=== PATIENT | male | born 1985 | race African-American/Black ===

== ENCOUNTER 2016-05-25 22:20 | Emergency (ER) | payer MEDICAID ==
[~2016-05-25] VITALS: Ht 180.3 cm; Wt 80.1 kg
[2016-05-25 22:23] VITALS: Ht 180.3 cm; Wt 80.1 kg
[2016-05-25 23:20] LABS: ADD UMIC YES; BASOPHIL # 0.1 10^3/ul (0.0-0.1); BASOPHILS % 0.7 % (0.0-2.0); EOSINOPHILS # 0.2 10^3/ul (0.0-0.5); EOSINOPHILS % 2.6 % (0.0-7.0); RED CELL DISTRIBUTION WIDTH 14.1 % (11.5-14.5); URINE BILIRUBIN (Dip) NEGATIVE (NEGATIVE); URINE BLOOD (Dip) NEGATIVE (NEGATIVE); URINE COLOR LT. YELLOW (YELLOW); URINE GLUCOSE (Dip) NEGATIVE (NEGATIVE); URINE KETONES (Dip) NEGATIVE (NEGATIVE); URINE LEUKOCYTE ESTERASE (Dip) NEGATIVE (NEGATIVE); URINE NITRITE (Dip) NEGATIVE (NEGATIVE); URINE TOTAL PROTEIN (Dip) TRACE (NEGATIVE); URINE UROBILINOGEN (Dip) 1.0 E.U./dL (0.1-1.0)
[2016-05-25 23:21] LABS: LH ANALYZER COMMENTS 1
[2016-05-25 23:31] LABS: BACTERIA,URINE MANY; SQUAMOUS EPITHELIAL CELL,UR RARE; URINE RBCS 0-2 /HPF (0)
[2016-05-25 23:43] LABS: ALBUMIN 3.2 g/dl (3.3-4.9)
[2016-05-25 23:44] LABS: CHLORIDE 106 mmol/L (97-110); SODIUM 141 mmol/L (135-144)
[2016-05-25 23:45] LABS: LYMPHOCYTES # 3.3 10^3/ul (0.8-2.9); LYMPHOCYTES % 39.3 % (15.0-51.0); MONOCYTE # 0.6 10^3/ul (0.3-0.9); MONOCYTES % 7.6 % (0.0-11.0); NEUTROPHIL # 4.2 10^3/ul (1.6-7.5); NEUTROPHILS % 49.8 % (39.0-77.0); UNCORRECTED WBC 8.5 10^3/ul (4.8-10.8)
[2016-05-25 23:46] LABS: ALANINE AMINOTRANSFERASE 36 IU/L (13-69); ALBUMIN/GLOBULIN RATIO 1.52; ALKALINE PHOSPHATASE 53 IU/L (42-121); ANION GAP 13 (8-16); ASPARTATE AMINO TRANSFERASE 23 IU/L (15-46); BLOOD UREA NITROGEN 13 mg/dl (7-20); CARBON DIOXIDE 26 mmol/L (21-31); CONDITION 1; CREATININE 0.91 mg/dl (0.61-1.24); GLUCOSE 124 mg/dl (70-220); TOTAL PROTEIN 5.3 g/dl (6.1-8.1)
[2016-05-25 23:47] LABS: CALCIUM 8.7 mg/dl (8.4-10.2)
[2016-05-25 23:51] LABS: RED BLOOD COUNT 4.72 10^6/ul (4.70-6.10); WHITE BLOOD COUNT 8.5 10^3/ul (4.8-10.8)
[2016-05-25 23:52] LABS: HEMOGLOBIN 14.5 g/dl (14.0-18.0)
[2016-05-25 23:53] LABS: MEAN CORPUSCULAR HEMOGLOBIN 30.7 pg (29.0-33.0); MEAN CORPUSCULAR HGB CONC 33.8 g/dl (32.0-37.0)
[2016-05-25 23:54] LABS: MEAN PLATELET VOLUME 8.3 fl (7.4-10.4); PLATELET COUNT 269 10^3/UL (140-440)
[2016-05-26 00:01] LABS: ACETAMINOPHEN < 10.0 ug/ml (10.0-30.0); ETHANOL < 10.0 mg/dl; SALICYLATE < 1.0 mg/dl (5.0-30.0)
[2016-05-26 00:26] LABS: BARBITURATES NEGATIVE (NEGATIVE); BENZODIAZEPINES NEGATIVE (NEGATIVE); CANNABINOIDS POSITIVE (NEGATIVE); COCAINE NEGATIVE (NEGATIVE); OPIATES NEGATIVE (NEGATIVE)
--- NOTE | 2016-05-26 02:23 | PSY ---
Date/Time of Note Date/Time of Note DATE: 05/25/16 TIME: 23:54 Psychiatric Subjective Eval Consent Pt consented to telemedicine: Yes Subjective Evaluation Patient location: emergency Chief Complaint: SI and a plan to jump off a bridge, Hx of Bipolar Reason for consult: suicidal History of present illness patient is a 31 yo male homeless with PPH Of depression who came to the ER due to feeling suicidal , he states that he has been feeling depressed, hopeless and helpless for months due to being homeless, having no support and being lonely. He denies any past or current manic or psychotic symptoms, he states that he has been suffering from insomnia for about one week, decrease appetite, lost interest in any type of activities, decrease energy and irritability. He states that he wants to jump of a building and was contemplating how to do it today. Past psychiatric history past suicidal attempt yes Hospitalization: yes Family History denies Medical history as per record Allergies: Coded Allergies: No Known Allergy (Unverified , 05/25/16) Substance Abuse Substance use: No known substance abuse Social History Marital status: single Level of education: hs DPA/Conservatorship: No Occupation/Fpc: unemployed Psychiatric Objective Eval Review of Systems: Review of Systems: Not Applicable Physical Examination: Physical Examination: Applicable Sleep: Insomnia Appetite: Decreased Energy: Decreased Interest: Decreased Mental Status Examination: Appearance: Disheveled Eye Contact: Good Psychomotor Activity: Normal Behavior: Cooperative Speech: Clear AFFECT: Depressed Mood: Depressed Though Process: Linear Thought Content: Normal, Delusions Suicidal: Yes Homicidal: No On 72 hour hold: No Orientation: x3 Cognition: Alert Insight: Impared Judgement: Impared Attention Span: Distractible Laboratory Results Laboratory Tests Test 05/25/16 23:00 Albumin 3.2g/dl Basophils # 0.110^3/ul Basophils % 0.7% Chloride Level 106mmol/L Eosinophils # 0.210^3/ul Eosinophils % 2.6% Hematocrit 43.0% Hemoglobin 14.5g/dl Lymphocytes # 3.310^3/ul Lymphocytes % 39.3% Mean Corpuscular Hemoglobin 30.7pg Mean Corpuscular Hemoglobin Concent 33.8g/dl Mean Corpuscular Volume 91.0fl Mean Platelet Volume 8.3fl Monocytes # 0.610^3/ul Monocytes % 7.6% Neutrophils # 4.210^3/ul Neutrophils % 49.8% Nucleated Red Blood Cells % 0.0/100WBC Platelet Count 13744^3/UL Potassium Level 4.0mmol/L Red Blood Count 4.7210^6/ul Red Cell Distribution Width 14.1% Sodium Level 141mmol/L Urine Bacteria MANY Urine Bilirubin NEGATIVE Urine Clarity SLIGHTLY CLOUDY Urine Color LT. YELLOW Urine Glucose NEGATIVE% Urine Hemoglobin NEGATIVE Urine Ketones NEGATIVE Urine Leukocyte Esterase NEGATIVE Urine Microscopic RBC 0-2/HPF Urine Microscopic WBC 0-2/HPF Urine Nitrite NEGATIVE Urine Specific [place] 1.010 Urine Squamous Epithelial Cells RARE Urine Total Protein TRACE Urine Urobilinogen 1.0 E.U./dL Urine pH 8.5 White Blood Count 8.510^3/ul Assessment and Plan Assessment/Diagnosis [place] I: major depressive disorder recurrent severe without psychotic features [place] II: deferred [place] III: as per record [place] IV: homeless [place] V: gaf 25 Recommendation/Plan Medication Management ativan 1 mg po tid remeron 15 mg po qhs Follow-up/Disposition Please admit patient on unvoluntary status due to Danger to self, In my opinion, patient currently MEETS criterion for inpatient care and CANNOT be safely treated at a lower level of care today as evidenced by the following risk factors: Current and Recent Suicidal Ideation Previous suicide attempt and severe self-destructive behavior Intense feelings of hopelessness and lack of future orientation. Significant recent DETERIORATION in function, behavior and thought processes Command hallucinations with violent content Substance ABUSE in conjunction with another psychiatric disorder Non-Compliance with Outpatient Treatment Patient has failed outpatient and requires further inpatient assessment Medication changes require observation unavailable at a lower level of care. 5150 Recommendation: AYESHA Anderson MD May 26, 2016 02:23
--- NOTE | 2016-05-26 04:07 | ERA ---
ER Documentation Chief Complaint Date/Time DATE: 05/26/16 TIME: 04:06 Chief Complaint SI and a plan to jump off a bridge, Hx of Bipolar HPI This is a 32 and is suicidal. He says his bowels are above average. Patient has a history of bipolar disorder. ROS All systems reviewed and are negative except as per history of present illness. Medications Home Meds No Active Prescriptions or Reported Meds Allergies Allergies: Coded Allergies: No Known Allergy (Unverified , 05/25/16) PMhx/Soc Medical and Surgical Hx: pt denies Surgical Hx History of Surgery: No Anesthesia Reaction: No Hx Neurological Disorder: No Hx Respiratory Disorders: No Hx Cardiac Disorders: No Hx Psychiatric Problems: Yes (PATIENT STATES HX OF SUICIDAL IDEATION, HOSPITALIZATION FOR SI.) Hx Miscellaneous Medical Probl: No Hx Alcohol Use: No Hx Substance Use: No Hx Tobacco Use: No Smoking Status: Unknown if ever smoked Physical Exam Vitals Vital Signs Date Time Temp Pulse Resp B/P Pulse Ox O2 Delivery O2 Flow Rate FiO2 05/26/16 01:00 98.8 75 17 126/76 98 05/25/16 22:23 98.7 74 18 128/76 98 Physical Exam Const: [] Head: Atraumatic Eyes: Normal Conjunctiva ENT: Normal External Ears, Nose and Mouth. Neck: Full range of motion..~ No meningismus. Resp: Clear to auscultation bilaterally Cardio: Regular rate and rhythm, no murmurs Abd: Soft, non tender, non distended. Normal bowel sounds Skin: No petechiae or rashes Back: No midline or flank tenderness Ext: No cyanosis, or edema Neur: Awake and alert Psych: Normal Mood and Affect Result Diagram: 05/25/16 2300 05/25/16 2300 Results 24 hrs Laboratory Tests Test 05/25/16 23:00 Acetaminophen Level < 10.0ug/ml Alanine Aminotransferase (ALT/SGPT) 36IU/L Albumin 3.2g/dl Albumin/Globulin Ratio 1.52 Alkaline Phosphatase 53IU/L Anion Gap 13 Aspartate Amino Transf (AST/SGOT) 23IU/L Basophils # 0.110^3/ul Basophils % 0.7% Blood Urea Nitrogen 13mg/dl Calcium Level 8.7mg/dl Carbon Dioxide Level 26mmol/L Chloride Level 106mmol/L Creatinine 0.91mg/dl Direct Bilirubin 0.00mg/dl Eosinophils # 0.210^3/ul Eosinophils % 2.6% Ethyl Alcohol Level < 10.0mg/dl Globulin 2.10g/dl Glucose Level 124mg/dl Hematocrit 43.0% Hemoglobin 14.5g/dl Indirect Bilirubin 0.0mg/dl Lymphocytes # 3.310^3/ul Lymphocytes % 39.3% Mean Corpuscular Hemoglobin 30.7pg Mean Corpuscular Hemoglobin Concent 33.8g/dl Mean Corpuscular Volume 91.0fl Mean Platelet Volume 8.3fl Monocytes # 0.610^3/ul Monocytes % 7.6% Neutrophils # 4.210^3/ul Neutrophils % 49.8% Nucleated Red Blood Cells # 0.010^3/ul Nucleated Red Blood Cells % 0.0/100WBC Platelet Count 59820^3/UL Potassium Level 4.0mmol/L Red Blood Count 4.7210^6/ul Red Cell Distribution Width 14.1% Salicylates Level < 1.0mg/dl Sodium Level 141mmol/L Total Bilirubin 0.0mg/dl Total Protein 5.3g/dl Urine Amphetamines Screen NEGATIVE Urine Bacteria MANY Urine Barbiturates NEGATIVE Urine Benzodiazepines Screen NEGATIVE Urine Bilirubin NEGATIVE Urine Cannabinoids POSITIVE Urine Clarity SLIGHTLY CLOUDY Urine Cocaine Screen NEGATIVE Urine Color LT. YELLOW Urine Glucose NEGATIVE% Urine Hemoglobin NEGATIVE Urine Ketones NEGATIVE Urine Leukocyte Esterase NEGATIVE Urine Microscopic RBC 0-2/HPF Urine Microscopic WBC 0-2/HPF Urine Nitrite NEGATIVE Urine Opiates Screen NEGATIVE Urine Specific [place] 1.010 Urine Squamous Epithelial Cells RARE Urine Total Protein TRACE Urine Urobilinogen 1.0 E.U./dL Urine pH 8.5 White Blood Count 8.510^3/ul Procedures/MDM Patient's behavioral symptoms have stabilized while in the department. Patient is medically cleared and appropriate for psychiatric evaluation and work up. No e/o neurologic, toxic, infectious, or metabolic cause. Patient placed on 5150 hold. Awaiting e BHU placement. Departure Diagnosis: Primary Impression: Suicidal ideation Condition: Stable CHRISTEN CEE May 26, 2016 04:07
[2016-05-26 05:00] VITALS: TEMP 97.6
[2016-05-26 06:26] VITALS: BP 126/75; PULSE 72; RESP 16
== END 2016-05-26 06:27 ==
LOC: E/R 22:20
DX: F29 Unspecified psychosis not due to a substance or known physiological condition (principal); R45.851 Suicidal ideations
CPT/HCPCS: 36415; 80053; 80306; 80307; 81001; 85025; Z7502; 81003; 99285

== ENCOUNTER → 2016-06-10 | Emergency (ER) | payer MEDICAID ==
[~2016-06-10] VITALS: Ht 180.3 cm; Wt 78.5 kg
[~2016-06-10] MED LIST: IBUP-1542 PO
[2016-06-10 20:51] VITALS: Ht 180.3 cm; Wt 78.5 kg
[2016-06-10 22:23] LABS: ADD UMIC NO; URINE BILIRUBIN (Dip) NEGATIVE (NEGATIVE); URINE BLOOD (Dip) NEGATIVE (NEGATIVE); URINE COLOR LT. YELLOW (YELLOW); URINE GLUCOSE (Dip) NEGATIVE (NEGATIVE); URINE KETONES (Dip) NEGATIVE (NEGATIVE); URINE LEUKOCYTE ESTERASE (Dip) NEGATIVE (NEGATIVE); URINE NITRITE (Dip) NEGATIVE (NEGATIVE); URINE TOTAL PROTEIN (Dip) NEGATIVE (NEGATIVE); URINE UROBILINOGEN (Dip) 0.2 E.U./dL (0.1-1.0)
--- NOTE | 2016-06-11 01:17 | ERD ---
ER Documentation Chief Complaint Date/Time DATE: 06/11/16 TIME: 01:14 Chief Complaint painful urination x 2 days HPI 31-year-old male with no significant past medical history presents to the ED complaining of dysuria that started 2 days ago. States that he has had unprotected intercourse 3 weeks ago. Ports that he has 1 sexual partner. Denies any concerns for STDs. Denies any penile discharge, scrotal pain, abdominal pain, urgency, frequency, hematuria, flank pain, chest pain, shortness of breath. ROS All systems reviewed and are negative except as per history of present illness. Medications Home Meds Active Scripts Ibuprofen* (Motrin*) 600 Mg Tab, 600 MG PO Q6, #30 TAB Prov:NYASIA GUTIERREZ PA-C 06/11/16 Allergies Allergies: Coded Allergies: No Known Allergy (Unverified , 05/25/16) PMhx/Soc Medical and Surgical Hx: pt denies Medical Hx, pt denies Surgical Hx History of Surgery: No Anesthesia Reaction: No Hx Neurological Disorder: No Hx Respiratory Disorders: No Hx Cardiac Disorders: No Hx Psychiatric Problems: Yes (PATIENT STATES HX OF SUICIDAL IDEATION, HOSPITALIZATION FOR SI.) Hx Miscellaneous Medical Probl: No Hx Alcohol Use: Yes Hx Substance Use: Yes (MARIJUANA) Hx Tobacco Use: Yes Smoking Status: Current every day smoker Physical Exam Vitals Vital Signs Date Time Temp Pulse Resp B/P Pulse Ox O2 Delivery O2 Flow Rate FiO2 06/10/16 20:51 99.5 77 18 114/56 98 Physical Exam Const: [id number], well-nourished. In no acute distress. Head: Atraumatic, normocephalic Eyes: Normal Conjunctiva without injection. No purulent discharge. ENT: Normal external ear, nose. Moist oropharynx without tonsillar exudates. Non -erythematous pharynx. Uvula midline. No drooling. No trismus. Neck: No cervical midline tenderness. Full range of motion. No meningismus. No cervical lymphadenopathy. No JVD. Resp: Clear to auscultation bilaterally. No wheezing, rhonchi, rales, or crackles. No accessory muscle use. No retractions. Cardio: Regular rate and rhythm. No murmurs, rubs or gallops. Abd: Soft, nontender, non distended. Normal bowel sounds. No palpable masses. No rebound tenderness. No guarding. Negative McBurney's point. Negative psoas sign. Negative obturator sign. : Uncircumcised penis. No scrotal tenderness. No penile discharge. No paraphimosis. No phimosis. No erythema or edema. Skin: No petechiae or rashes Back: No midline tenderness. No CVA tenderness. Ext: No cyanosis, or edema. Neur: Awake and alert. Normal gait. Normal coordination. Psych: Normal Mood and Affect Results 24 hrs Laboratory Tests Test 06/10/16 21:45 Urine Bilirubin NEGATIVE Urine Clarity CLEAR Urine Color LT. YELLOW Urine Glucose NEGATIVE% Urine Hemoglobin NEGATIVE Urine Ketones NEGATIVE Urine Leukocyte Esterase NEGATIVE Urine Nitrite NEGATIVE Urine Specific [place] 1.020 Urine Total Protein NEGATIVE Urine Urobilinogen 0.2 E.U./dL Urine pH 6.0 Procedures/MDM 31-year-old male with no significant past medical history presents the ED complaining of dysuria. Patient is afebrile and nontoxic-appearing. Patient has normal vital signs. Patient with a urinalysis, urine culture, gonorrhea and chlamydia urine test. Urinalysis shows no leukocyte esterase, hematuria, nitrates. Patient states that he would like to wait till the urine culture comes back for further evaluation and treatment. I strictly instructed patient that if he does not get a call in 3 days, he should follow-up with medical records for the urine culture results and that he should follow-up with a urologist. There is low suspicion for testicular torsion, appendicitis, hernias , paraphimosis, phimosis, epididymitis, orchitis, or other emergent conditions. Discharge medications: Ibuprofen Follow up with primary care physician in 1-2 days. Instructed patient to return to the ED sooner for any worsening symptoms. Patient's questions were answered. Patient understood and agreed with discharge plan. Patient discharged stable. Departure Diagnosis: Primary Impression: Dysuria Condition: Stable Patient Instructions: Dysuria Referrals: COMMUNITY CLINICS YOU HAVE RECEIVED A MEDICAL SCREENING EXAM AND THE RESULTS INDICATE THAT YOU DO NOT HAVE A CONDITION THAT REQUIRES URGENT TREATMENT IN THE EMERGENCY DEPARTMENT. FURTHER EVALUATION AND TREATMENT OF YOUR CONDITION CAN WAIT UNTIL YOU ARE SEEN IN YOUR DOCTORS OFFICE WITHIN THE NEXT 1-2 DAYS. IT IS YOUR RESPONSIBILITY TO MAKE AN APPOINTMENT FOR FOLOW-UP CARE. IF YOU HAVE A PRIMARY DOCTOR --you should call your primary doctor and schedule an appointment IF YOU DO NOT HAVE A PRIMARY DOCTOR YOU CAN CALL OUR PHYSICIAN REFERRAL HOTLINE AT IF YOU CAN NOT AFFORD TO SEE A PHYSICIAN YOU CAN CHOSE FROM THE FOLLOWING [facility] [address] [facility] [address] [facility] [address] [facility] [address] [facility] [address] [facility]. [facility] [address] [facility]. [facility] YOU HAVE RECEIVED A MEDICAL SCREENING EXAM AND THE RESULTS INDICATE THAT YOU DO NOT HAVE A CONDITION THAT REQUIRES URGENT TREATMENT IN THE EMERGENCY DEPARTMENT. FURTHER EVALUATION AND TREATMENT OF YOUR CONDITION CAN WAIT UNTIL YOU ARE SEEN IN YOUR DOCTORS OFFICE WITHIN THE NEXT 1-2 DAYS. IT IS YOUR RESPONSIBILITY TO MAKE AN APPOINTMENT FOR FOLOW-UP CARE. IF YOU HAVE A PRIMARY DOCTOR --you should call your primary doctor and schedule and appointment IF YOU DO NOT HAVE A PRIMARY DOCTOR YOU CAN CALL OUR PHYSICIAN REFERRAL HOTLINE AT . IF YOU CAN NOT AFFORD TO SEE A PHYSICIAN YOU CAN CHOSE FROM THE FOLLOWING [facility]: [facility] [address] [place] [address] [facility] [address] [place] [address] [facility] [address] [place] [address] [facility] URGENT CARE/SPECIALTIES Additional Instructions: URINE CULTURE WILL HAVE RESULTS IN ABOUT 3 DAYS, WITHIN 1 WEEK. IF IT COMES BACK POSITIVE, THEY WILL CALL YOU WITH RESULTS. IF IT IS NEGATIVE, PLEASE FOLLOW UP WITH MEDICAL RECORDS FOR RESULTS AND FOLLOW UP WITH UROLOGIST REFERRED BY YOUR FAMILY DOCTOR WITHIN 1 WEEK. Return to this facility if you are not improving as expected. NYASIA GUTIERREZ PA-C Jun 11, 2016 01:17
[2016-06-11 01:19] VITALS: BP 129/67; PULSE 69; RESP 18; TEMP 95.4
== END | disposition home or self-care (01) ==
LOC: FTE 19:48
DX: R30.0 Dysuria (principal); F17.210 Nicotine dependence, cigarettes, uncomplicated
CPT/HCPCS: 81003; 87086; 87591; Z7502; 99283

== ENCOUNTER 2016-06-17 08:36 | Emergency (ER) | payer MEDICAID ==
[~2016-06-17] VITALS: Wt 71.2 kg
[2016-06-17 10:34] LABS: ADD SCAN DIFF NO
[2016-06-17 10:37] LABS: ADD UMIC YES; URINE BILIRUBIN (Dip) NEGATIVE (NEGATIVE); URINE BLOOD (Dip) TRACE (NEGATIVE); URINE COLOR YELLOW (YELLOW); URINE GLUCOSE (Dip) NEGATIVE (NEGATIVE); URINE KETONES (Dip) NEGATIVE (NEGATIVE); URINE LEUKOCYTE ESTERASE (Dip) NEGATIVE (NEGATIVE); URINE NITRITE (Dip) NEGATIVE (NEGATIVE); URINE TOTAL PROTEIN (Dip) TRACE (NEGATIVE); URINE UROBILINOGEN (Dip) 1.0 E.U./dL (0.1-1.0)
[2016-06-17 10:40] LABS: BASOPHIL # 0.1 10^3/ul (0.0-0.1); BASOPHILS % 0.7 % (0.0-2.0); EOSINOPHILS # 0.1 10^3/ul (0.0-0.5); EOSINOPHILS % 0.9 % (0.0-7.0); HEMATOCRIT 51.2 % (42.0-52.0); HEMOGLOBIN 17.2 g/dl (14.0-18.0); LYMPHOCYTES # 1.4 10^3/ul (0.8-2.9); LYMPHOCYTES % 16.4 % (15.0-51.0); MEAN CORPUSCULAR HGB CONC 33.6 g/dl (32.0-37.0); MEAN CORPUSCULAR VOLUME 89.4 fl (82.0-101.0); MEAN PLATELET VOLUME 9.4 fl (7.4-10.4); MONOCYTE # 0.5 10^3/ul (0.3-0.9); MONOCYTES % 6.6 % (0.0-11.0); NEUTROPHIL # 6.2 10^3/ul (1.6-7.5); NEUTROPHILS % 75.2 % (39.0-77.0); PLATELET COUNT 310 10^3/UL (140-415); RED BLOOD COUNT 5.73 10^6/ul (4.70-6.10); RED CELL DISTRIBUTION WIDTH 13.2 % (11.5-14.5); WHITE BLOOD COUNT 8.2 10^3/ul (4.8-10.8)
[2016-06-17 10:49] LABS: ALBUMIN 4.3 g/dl (3.3-4.9); CHLORIDE 101 mmol/L (97-110); SODIUM 145 mmol/L (135-144)
[2016-06-17 10:51] LABS: ANION GAP 17 (8-16); ASPARTATE AMINO TRANSFERASE 38 IU/L (15-46); BILIRUBIN,INDIRECT 0.6 mg/dl (0-1.1); BILIRUBIN,TOTAL 0.6 mg/dl (0.2-1.3); CARBON DIOXIDE 31 mmol/L (21-31); CREATININE 1.17 mg/dl (0.61-1.24)
[2016-06-17 10:52] LABS: ALANINE AMINOTRANSFERASE 40 IU/L (13-69); ALBUMIN/GLOBULIN RATIO 1.43; ALKALINE PHOSPHATASE 66 IU/L (42-121); BLOOD UREA NITROGEN 19 mg/dl (7-20); CALCIUM 9.5 mg/dl (8.4-10.2); GLUCOSE 84 mg/dl (70-220); TOTAL PROTEIN 7.3 g/dl (6.1-8.1)
[2016-06-17 10:54] LABS: BARBITURATES Negative (NEGATIVE); BENZODIAZEPINES Negative (NEGATIVE); CANNABINOIDS Positive (NEGATIVE); COCAINE Positive (NEGATIVE); OPIATES Negative (NEGATIVE)
[2016-06-17 10:54] LABS: ACETAMINOPHEN < 10.0 ug/ml (10.0-30.0); ETHANOL < 10.0 mg/dl; SALICYLATE < 1.0 mg/dl (5.0-30.0)
[2016-06-17 11:10] LABS: BACTERIA,URINE FEW; MUCUS,URINE MODERATE; URINE RBCS 0-2 /HPF (0)
--- NOTE | 2016-06-17 14:09 | PSY ---
Date/Time of Note Date/Time of Note DATE: 06/17/16 TIME: 13:57 Psychiatric Subjective Eval Consent Pt consented to telemedicine: Yes Subjective Evaluation Patient location: emergency Chief Complaint: suicidal ideation for the past 2 wks. recent dc from [facility], no plan stated History of present illness 31 YO HOMELESS male with hx bipoalr d/o and polysubstance dep-ce self presenting to Ed for active Si with a plan to hang himself. Pt says he has been hopeless and helpless, depressed; last inpt was a month ago, he nver restarted his meds after inpt and has been using meth and cocaine. UDS + meth, cocaine, thc. + command AH + PI no HI. Pt says he is depressed about homelessness and lack of support. Consdiered suicide 2 weeks ago but "was able to talk himself out of it" No hi. Past psychiatric history multiple inpt poor meds compliance Hospitalization: yes Family History denies Medical history Problems Medical Problems: (1) Dysuria Status: Acute (2) Suicidal ideation Status: Acute Allergies: Coded Allergies: No Known Allergy (Unverified , 05/25/16) Substance Abuse Substance abuse history: Yes Prior substance abuse treatmen: Yes Social History Marital status: single Level of education: ged DPA/Conservatorship: No Occupation/Skilled Nursing: homeless, unemployed, no ssi Psychiatric Objective Eval Physical Examination: Sleep: Insomnia Appetite: Decreased Energy: Decreased Interest: Decreased Mental Status Examination: Appearance: Disheveled Eye Contact: Fair Psychomotor Activity: Normal Behavior: Cooperative Speech: Clear AFFECT: Appropriate Mood: Depressed Though Process: Linear Thought Content: Hallucinations Suicidal: Yes Homicidal: No On 72 hour hold: No Orientation: x4 Cognition: Alert Insight: Impared Judgement: Impared Laboratory Results Laboratory Tests Test 06/17/16 10:00 06/17/16 10:20 Urine Amphetamines Screen POSITIVE Urine Bacteria FEW Urine Barbiturates Negative Urine Benzodiazepines Screen Negative Urine Bilirubin NEGATIVE Urine Cannabinoids Positive Urine Clarity CLEAR Urine Cocaine Screen Positive Urine Color YELLOW Urine Epithelial Cells FEW Urine Glucose NEGATIVE% Urine Hemoglobin TRACE Urine Ketones NEGATIVE Urine Leukocyte Esterase NEGATIVE Urine Microscopic RBC 0-2/HPF Urine Microscopic WBC 2-5/HPF Urine Mucus MODERATE Urine Nitrite NEGATIVE Urine Opiates Screen Negative Urine Specific [place] >=1.030 Urine Total Protein TRACE Urine Urobilinogen 1.0 E.U./dL Urine pH 6.0 Acetaminophen Level < 10.0ug/ml Alanine Aminotransferase (ALT/SGPT) 40IU/L Albumin 4.3g/dl Albumin/Globulin Ratio 1.43 Alkaline Phosphatase 66IU/L Anion Gap 17 Aspartate Amino Transf (AST/SGOT) 38IU/L Basophils # 0.110^3/ul Basophils % 0.7% Blood Urea Nitrogen 19mg/dl Calcium Level 9.5mg/dl Carbon Dioxide Level 31mmol/L Chloride Level 101mmol/L Creatinine 1.17mg/dl Direct Bilirubin 0.00mg/dl Eosinophils # 0.110^3/ul Eosinophils % 0.9% Ethyl Alcohol Level < 10.0mg/dl Globulin 3.00g/dl Glucose Level 84mg/dl Hematocrit 51.2% Hemoglobin 17.2g/dl Indirect Bilirubin 0.6mg/dl Lymphocytes # 1.410^3/ul Lymphocytes % 16.4% Mean Corpuscular Hemoglobin 30.0pg Mean Corpuscular Hemoglobin Concent 33.6g/dl Mean Corpuscular Volume 89.4fl Mean Platelet Volume 9.4fl Monocytes # 0.510^3/ul Monocytes % 6.6% Neutrophils # 6.210^3/ul Neutrophils % 75.2% Nucleated Red Blood Cells # 0.010^3/ul Nucleated Red Blood Cells % 0.0/100WBC Platelet Count 97345^3/UL Potassium Level 4.0mmol/L Red Blood Count 5.7310^6/ul Red Cell Distribution Width 13.2% Salicylates Level < 1.0mg/dl Sodium Level 145mmol/L Total Bilirubin 0.6mg/dl Total Protein 7.3g/dl White Blood Count 8.210^3/ul Assessment and Plan Assessment/Diagnosis [place] I: Bipolar disorder, depressed. Polysubstance dependence [place] II: defered [place] III: nad [place] IV: severe [place] V: gaf 25 Recommendation/Plan Medication Management please start on Seroquel 100 mg poqhs Psychotherapy defer to inpt Pt. Caregiver/Family Education n/a Follow-up/Disposition please transfer to inpt psych voluntary for dts. 5150 Recommendation: YANI MENDOZA MD Jun 17, 2016 14:08
--- NOTE | 2016-06-17 15:13 | ERD ---
ER Documentation Chief Complaint Date/Time DATE: 06/17/16 TIME: 15:11 Chief Complaint suicidal ideation for the past 2 wks. recent dc from [facility], [place], no plan stated HPI 31-year-old homeless male with a history of bipolar disorder and schizophrenia presenting with complaints of suicidal ideations. He states that he has been having thoughts of killing himself. He has no specific plan. He denies any homicidal ideations or hallucinations. He is supposed to be on medications for his mental health issues, however he is not taking them for several weeks. He has no other complaints today. He is asking for food. ROS All systems reviewed and are negative except as per history of present illness. Medications Home Meds Active Scripts Ibuprofen* (Motrin*) 600 Mg Tab, 600 MG PO Q6, #30 TAB Prov:NYASIA GUTIERREZ PA-C 06/11/16 Allergies Allergies: Coded Allergies: No Known Allergy (Unverified , 05/25/16) PMhx/Soc Medical and Surgical Hx: pt denies Medical Hx, pt denies Surgical Hx History of Surgery: No Anesthesia Reaction: No Hx Neurological Disorder: No Hx Respiratory Disorders: No Hx Cardiac Disorders: No Hx Psychiatric Problems: Yes (PATIENT STATES HX OF SUICIDAL IDEATION, HOSPITALIZATION FOR SI bipolar schi) Hx Miscellaneous Medical Probl: No Hx Alcohol Use: Yes (occassional) Hx Substance Use: Yes (MARIJUANA) Hx Tobacco Use: Yes (5-10 cig/ day) Smoking Status: Current some day smoker FmHx Family History: No diabetes Physical Exam Vitals Vital Signs Date Time Temp Pulse Resp B/P Pulse Ox O2 Delivery O2 Flow Rate FiO2 06/17/16 08:38 98.6 100 20 140/66 99 Physical Exam Const: No distress, well-developed, well-nourished Head: Atraumatic Eyes: Normal Conjunctiva ENT: Normal External Ears, Nose and Mouth. Neck: Full range of motion. Resp: No respiratory distress Cardio: Regular rate and rhythm, no murmurs Abd: Soft, non tender, non distended. Normal bowel sounds Neur: Awake and alert and oriented 3, moving all extremities, normal gait and speech Psych: Depressed mood and Affect, positive suicidal ideations, no hallucinations or homicidal ideation Result Diagram: 06/17/16 1020 06/17/16 1020 Results 24 hrs Laboratory Tests Test 06/17/16 10:00 06/17/16 10:20 Urine Amphetamines Screen POSITIVE Urine Bacteria FEW Urine Barbiturates Negative Urine Benzodiazepines Screen Negative Urine Bilirubin NEGATIVE Urine Cannabinoids Positive Urine Clarity CLEAR Urine Cocaine Screen Positive Urine Color YELLOW Urine Epithelial Cells FEW Urine Glucose NEGATIVE% Urine Hemoglobin TRACE Urine Ketones NEGATIVE Urine Leukocyte Esterase NEGATIVE Urine Microscopic RBC 0-2/HPF Urine Microscopic WBC 2-5/HPF Urine Mucus MODERATE Urine Nitrite NEGATIVE Urine Opiates Screen Negative Urine Specific [place] >=1.030 Urine Total Protein TRACE Urine Urobilinogen 1.0 E.U./dL Urine pH 6.0 Acetaminophen Level < 10.0ug/ml Alanine Aminotransferase (ALT/SGPT) 40IU/L Albumin 4.3g/dl Albumin/Globulin Ratio 1.43 Alkaline Phosphatase 66IU/L Anion Gap 17 Aspartate Amino Transf (AST/SGOT) 38IU/L Basophils # 0.110^3/ul Basophils % 0.7% Blood Urea Nitrogen 19mg/dl Calcium Level 9.5mg/dl Carbon Dioxide Level 31mmol/L Chloride Level 101mmol/L Creatinine 1.17mg/dl Direct Bilirubin 0.00mg/dl Eosinophils # 0.110^3/ul Eosinophils % 0.9% Ethyl Alcohol Level < 10.0mg/dl Globulin 3.00g/dl Glucose Level 84mg/dl Hematocrit 51.2% Hemoglobin 17.2g/dl Indirect Bilirubin 0.6mg/dl Lymphocytes # 1.410^3/ul Lymphocytes % 16.4% Mean Corpuscular Hemoglobin 30.0pg Mean Corpuscular Hemoglobin Concent 33.6g/dl Mean Corpuscular Volume 89.4fl Mean Platelet Volume 9.4fl Monocytes # 0.510^3/ul Monocytes % 6.6% Neutrophils # 6.210^3/ul Neutrophils % 75.2% Nucleated Red Blood Cells # 0.010^3/ul Nucleated Red Blood Cells % 0.0/100WBC Platelet Count 52044^3/UL Potassium Level 4.0mmol/L Red Blood Count 5.7310^6/ul Red Cell Distribution Width 13.2% Salicylates Level < 1.0mg/dl Sodium Level 145mmol/L Total Bilirubin 0.6mg/dl Total Protein 7.3g/dl White Blood Count 8.210^3/ul Current Medications Medications (Trade) Dose Ordered Sig/Aayush Route PRN Reason Start Time Stop Time Status Last Admin Dose Admin Quetiapine Fumarate (Seroquel) 100 mg QHS ONCE PO 06/17/16 21:00 06/17/16 21:01 Procedures/MDM Patient is presenting with suicidal ideations. He is hemodynamically stable. He does not seem to be acutely intoxicated. His UDS did show polysubstance abuse. I consulted tele-psychiatry after medically clearing him and they recommended starting the patient was Seroquel and placing him on the 5150 hold. PET team was contacted to place to hold. Patient was pending PET team evaluation at the end of my shift. He was signed out to Dr. Stern. Departure Diagnosis: Primary Impression: Suicidal ideation Additional Impression: Polysubstance abuse Condition: CESAR Sands MD Jun 17, 2016 15:13
[2016-06-17] MEDS ORDERED: QUETIAPINE 100 MG TAB PO ONE (21:00)
[2016-06-18 09:46] VITALS: BP 136/77; PULSE 86; RESP 20; TEMP 98.3
== END 2016-06-18 09:50 ==
LOC: E/R 08:36
DX: F29 Unspecified psychosis not due to a substance or known physiological condition (principal); R40.2252 Coma scale, best verbal response, oriented, at arrival to emergency department; R45.851 Suicidal ideations; F19.10 Other psychoactive substance abuse, uncomplicated; F17.210 Nicotine dependence, cigarettes, uncomplicated; R40.2142 Coma scale, eyes open, spontaneous, at arrival to emergency department; R40.2362 Coma scale, best motor response, obeys commands, at arrival to emergency department
CPT/HCPCS: 80053; 80306; 80307; 81001; 85025; Z7610; 36415; 81003; 99285